=== PATIENT | female | born 1980 | race African-American/Black ===

== ENCOUNTER 2020-10-26 22:55 | Emergency (ER) | payer SELFPAY ==
[2020-10-26 23:22] VITALS: BP 121/72; PULSE 90; TEMP 99.4; BMI 31.5
[2020-10-26] MEDS ORDERED: IBUPROFEN 600 MG TABLET (FP) PO ONE ×2 (23:37→23:47)
== END 2020-10-27 00:24 | disposition home or self-care (01) ==
LOC: FER 22:55
DX: S42.462A Displaced fracture of medial condyle of left humerus, initial encounter for closed fracture (principal)
CPT/HCPCS: 73070-TC-LT-FY; 99283-25